=== PATIENT | male | born 1955 | race Caucasian/White ===

== ENCOUNTER 2018-02-17 18:13 | Inpatient (IN) | payer OTHER ==
[~2018-02-17] VITALS: Ht 177.8 cm; Wt 87.9 kg
[~2018-02-17 18:13] MED LIST: COU5T PO; COU7.5T PO; DILT180C66 PO; LOSA25TA96 PO; Lopressor PO; MAG400T PO; MULT-785 PO; NITR0.4T SL; OMEG1CAP PO; POTA10TA19 PO; PRED5TAB PO; brilinta PO
[2018-02-17] MEDS ORDERED: HYDROmorphone 1 mg/ml syringe IV ONE (18:30)
[2018-02-17] MEDS ORDERED: ondansetron/PF 4mg/2ml inj IV ONE (18:30)
[2018-02-17] MEDS ORDERED: HYDROmorphone inj. 0.5 MG/0.5 ML DISP.SYRIN IV ONE (18:30)
[2018-02-17] MEDS ORDERED: heparin 10,000 units/1 ML INJ IV ONE ×2 (18:35→18:45)
[2018-02-17 18:56] LABS: INR 1.1 INR; PARTIAL THROMBOPLASTIN TIME 25 SECONDS (22-32)
[2018-02-17 19:01] LABS: ALANINE AMINOTRANSFERASE 17 U/L (12-78); ALBUMIN 4.1 G/DL (3.4-5.0); ALBUMIN/GLOBULIN RATIO 1.3 (1.1-1.5); ALKALINE PHOSPHATASE 69 IU/L (46-116); ANION GAP 12 (8-16); ASPARTATE AMINO TRANSFERASE 16 U/L (10-37); BILIRUBIN,TOTAL 0.6 MG/DL (0.1-1.0); BLOOD UREA NITROGEN 17 MG/DL (7-18); CALCIUM 9.2 MG/DL (8.5-10.1); CHLORIDE 102 MMOL/L (99-107); GLUCOSE 119 MG/DL (70-104); POTASSIUM 3.6 MMOL/L (3.5-5.1); SODIUM 139 MMOL/L (135-145); TOTAL CARBON DIOXIDE 24.8 MMOL/L (24-32); TOTAL PROTEIN 7.3 G/DL (6.4-8.2); eGFR 76 ML/MIN
[2018-02-17 19:28] LABS: BASOPHILS % (AUTO) 0.7 % (0-1); EOSINOPHILS # (AUTO) 0.4 X10'3 (0-0.9); EOSINOPHILS % (AUTO) 6.9 % (0-6); HEMATOCRIT 43.5 % (42.0-52.0); HEMOGLOBIN 14.9 g/dl (14.0-17.9); LYMPHOCYTES # (AUTO) 1.5 X10'3 (1.1-4.8); LYMPHOCYTES % (AUTO) 25.2 % (21-51); MEAN CORPUSCULAR HEMOGLOBIN 32.1 PG (27.0-31.0); MEAN CORPUSCULAR HGB CONC 34.3 % (33.0-36.5); MEAN CORPUSCULAR VOLUME 93.5 FL (78-98); MEAN PLATELET VOLUME 9.1 FL (7.4-10.4); MONOCYTES # (AUTO) 0.5 X10'3 (0-0.9); MONOCYTES % (AUTO) 8.9 % (2-12); NEUTROPHILS # (AUTO) 3.5 X10'3 (1.8-7.7); NEUTROPHILS % (AUTO) 58.3 % (42-75); PLATELET COUNT 165 X10'3 (140-440); RED BLOOD COUNT 4.66 X10'6 (4.70-6.10); RED CELL DISTRIBUTION WIDTH 13.6 % (11.5-14.5); WHITE BLOOD COUNT 5.9 X10'3 (4.5-11.0)
[2018-02-17] MEDS: heparin 10,000 units/1 ML INJ IV PRN (19:33)
[2018-02-17] MEDS ORDERED: POTA10TA19 PO (19:52)
[2018-02-17] MEDS ORDERED: LOSA25TA96 PO (19:52)
[2018-02-17] MEDS ORDERED: CYAN-19 PO (19:52)
[2018-02-17] MEDS ORDERED: morphine 4 MG/ML inj SYRINge IV ONE (20:10)
[2018-02-17] MEDS ORDERED: labetalol 20mg/4ml (5mg/ml) syringe IV ONE (20:25)
[2018-02-17] MEDS ORDERED: LORazepam 2 mg/ml vial IV ONE (20:25)
[2018-02-17] MEDS ORDERED: magnesium hydroxide 30ml (MOM) UD suspension PO PRN (20:35)
[2018-02-17] MEDS ORDERED: acetaminophen 325mg tablet PO PRN (20:35)
[2018-02-17] MEDS ORDERED: morphine 4 MG/ML inj SYRINge IV PRN (20:35)
[2018-02-17] MEDS ORDERED: ondansetron/PF 4mg/2ml inj IV PRN (20:35)
[2018-02-17] MEDS ORDERED: mag hydrox/Alum hydrox/simeth 30ml oral suspension PO PRN (20:35)
[2018-02-17] MEDS ORDERED: LORazepam 2 mg/ml vial IV PRN (20:40)
[2018-02-17] MEDS ORDERED: thiamine 100mg tablet PO ONE (20:40)
[2018-02-17 21:40] VITALS: BP 179/94
[2018-02-17 22:00] VITALS: BP 160/98
[2018-02-17] MEDS: nitroGLYCERIN 0.4mg SUBLingual tab SL PRN ×3 (22:23→22:37)
[2018-02-17] MEDS ORDERED: metoprolol tartrate 1mg/ml inj IV ONE (22:50)
[2018-02-17] MEDS: morphine 2 MG/ML inj. syringe IV PRN (23:25)
[2018-02-18] VITALS (12 sets, daily range): BP systolic 132–171; BP diastolic 78–100
[2018-02-18 01:14] LABS: ALANINE AMINOTRANSFERASE 19 U/L (12-78); ALBUMIN/GLOBULIN RATIO 1.3 (1.1-1.5); ALKALINE PHOSPHATASE 66 IU/L (46-116); ANION GAP 7 (8-16); ASPARTATE AMINO TRANSFERASE 50 U/L (10-37); BILIRUBIN,TOTAL 1.1 MG/DL (0.1-1.0); BLOOD UREA NITROGEN 14 MG/DL (7-18); BUN/CREATININE RATIO 16.3 (5.4-32.0); CALCIUM 9.3 MG/DL (8.5-10.1); CHLORIDE 103 MMOL/L (99-107); CREATININE 0.86 MG/DL (0.60-1.10); GLUCOSE 143 MG/DL (70-104); POTASSIUM 4.1 MMOL/L (3.5-5.1); SODIUM 138 MMOL/L (135-145); TOTAL CARBON DIOXIDE 27.9 MMOL/L (24-32); eGFR 90 ML/MIN
[2018-02-18] MEDS: morphine 2 MG/ML inj. syringe IV PRN (01:16)
[2018-02-18 01:48] LABS: BASOPHILS % (AUTO) 0.1 % (0-1); EOSINOPHILS # (AUTO) 0.2 X10'3 (0-0.9); EOSINOPHILS % (AUTO) 2.6 % (0-6); HEMATOCRIT 43.8 % (42.0-52.0); HEMOGLOBIN 15.2 g/dl (14.0-17.9); LYMPHOCYTES # (AUTO) 0.8 X10'3 (1.1-4.8); LYMPHOCYTES % (AUTO) 9.1 % (21-51); MEAN CORPUSCULAR HEMOGLOBIN 32.6 PG (27.0-31.0); MEAN CORPUSCULAR HGB CONC 34.6 % (33.0-36.5); MEAN PLATELET VOLUME 9.6 FL (7.4-10.4); MONOCYTES # (AUTO) 0.6 X10'3 (0-0.9); MONOCYTES % (AUTO) 7.1 % (2-12); NEUTROPHILS # (AUTO) 7.4 X10'3 (1.8-7.7); NEUTROPHILS % (AUTO) 81.1 % (42-75); PLATELET COUNT 149 X10'3 (140-440); RED BLOOD COUNT 4.66 X10'6 (4.70-6.10); RED CELL DISTRIBUTION WIDTH 12.9 % (11.5-14.5); WHITE BLOOD COUNT 9.2 X10'3 (4.5-11.0)
[2018-02-18] MEDS: heparin 10,000 units/1 ML INJ IV PRN (04:30)
[2018-02-18] MEDS: metoprolol tartrate 25mg tablet PO SCH ×2 (07:28→20:27)
[2018-02-18] MEDS: losartan 25mg tablet PO SCH ×2 (07:28→20:27)
[2018-02-18 09:59] LABS: CHOL/HDL RATIO 2.4 (0.00-4.99); CHOLESTEROL 150 MG/DL (0-200); HDL CHOLESTEROL 62 MG/DL (35-60); LDL CHOLESTEROL 84 MG/DL (50-100); TRIGLYCERIDES 49 MG/DL (20-135)
[2018-02-18] MEDS ORDERED: predniSONE 20 mg tablet PO ONE (10:50)
[2018-02-18] MEDS: normal saline 1000ml 1,000 ML IV SCH (11:30)
[2018-02-18] MEDS ORDERED: hydrocortisone sod succ/PF 250mg/2ml inj. IV ONE (12:15)
[2018-02-18] MEDS ORDERED: diphenhydrAMINE 25mg capsule PO ONE (12:15)
[2018-02-18] MEDS ORDERED: hydrocortisone sod succ/PF 100mg/2ml inj. IV ONE (12:40)
[2018-02-18] MEDS ORDERED: iohexol 350MG/ML 100ml bottle IV ONE ×2 (16:10→17:02)
[2018-02-18] MEDS ORDERED: fentaNYL/PF 50MCG/1 ML 2ML syringe ONE (16:10)
[2018-02-18] MEDS ORDERED: iohexol 350 MG/ML 50ML vial IV ONE (16:10)
[2018-02-18] MEDS ORDERED: midazolam 2 mg/2 ml injection ONE (16:10)
[2018-02-18] MEDS ORDERED: LIDOcaine 1% 30ml preserv. free vial ONE (16:10)
[2018-02-18] MEDS ORDERED: tirofiban 5mg in NS 100mL 100 ML IV ONE (16:56)
[2018-02-18] MEDS ORDERED: clopidogrel 300mg tablet ONE (17:10)
[2018-02-18] MEDS ORDERED: aspirin 325mg tablet ONE (17:10)
[2018-02-18] MEDS ORDERED: metoprolol tartrate 1mg/ml inj IV ONE (17:16)
[2018-02-18] MEDS: nitroGLYCERIN-Tridil 50MG/D5W 250 ML IV SCH (18:10)
[2018-02-18] MEDS ORDERED: acetaminophen 325mg tablet PO PRN (18:10)
[2018-02-18] MEDS ORDERED: HYDROcodone/acetaminophen 10/325mg tab PO PRN (18:10)
[2018-02-18] MEDS ORDERED: proCHLORperazine 10 MG/2 ml inj IV PRN (18:10)
[2018-02-18] MEDS ORDERED: morphine 4 MG/ML inj SYRINge IV PRN (18:10)
[2018-02-18] MEDS: tirofiban 5mg in NS 100mL 100 ML IV SCH (18:33)
[2018-02-18] MEDS: docusate sod 100mg capsule PO SCH (20:27)
[2018-02-18] MEDS: OXAZEpam 15mg capsule PO PRN (20:27)
[2018-02-18] MEDS: cyclobenzaprine 10mg tablet PO PRN (20:28)
[2018-02-18 23:45] LABS: BASOPHILS % (AUTO) 0.1 % (0-1); EOSINOPHILS # (AUTO) 0.1 X10'3 (0-0.9); EOSINOPHILS % (AUTO) 0.6 % (0-6); HEMATOCRIT 45.3 % (42.0-52.0); HEMOGLOBIN 15.8 g/dl (14.0-17.9); LYMPHOCYTES # (AUTO) 0.4 X10'3 (1.1-4.8); MEAN CORPUSCULAR HEMOGLOBIN 32.4 PG (27.0-31.0); MEAN CORPUSCULAR HGB CONC 34.8 % (33.0-36.5); MEAN CORPUSCULAR VOLUME 93.1 FL (78-98); MEAN PLATELET VOLUME 9.1 FL (7.4-10.4); MONOCYTES # (AUTO) 0.5 X10'3 (0-0.9); MONOCYTES % (AUTO) 5.4 % (2-12); NEUTROPHILS # (AUTO) 8.2 X10'3 (1.8-7.7); NEUTROPHILS % (AUTO) 89.9 % (42-75); PLATELET COUNT 160 X10'3 (140-440); RED BLOOD COUNT 4.87 X10'6 (4.70-6.10); RED CELL DISTRIBUTION WIDTH 13.8 % (11.5-14.5); WHITE BLOOD COUNT 9.1 X10'3 (4.5-11.0)
[2018-02-19] VITALS (24 sets, daily range): BP systolic 108–162; BP diastolic 74–96
[2018-02-19] MEDS: normal saline 1000ml 1,000 ML IV SCH ×2 (00:10→09:22)
[2018-02-19] MEDS: tirofiban 5mg in NS 100mL 100 ML IV SCH ×5 (00:22→20:45)
[2018-02-19] MEDS: cyclobenzaprine 10mg tablet PO PRN (04:10)
[2018-02-19 04:14] LABS: BASOPHILS % (AUTO) 0.1 % (0-1); EOSINOPHILS # (AUTO) 0.1 X10'3 (0-0.9); EOSINOPHILS % (AUTO) 0.8 % (0-6); HEMATOCRIT 44.2 % (42.0-52.0); HEMOGLOBIN 15.4 g/dl (14.0-17.9); LYMPHOCYTES # (AUTO) 0.6 X10'3 (1.1-4.8); LYMPHOCYTES % (AUTO) 5.6 % (21-51); MEAN CORPUSCULAR HEMOGLOBIN 32.6 PG (27.0-31.0); MEAN CORPUSCULAR HGB CONC 34.8 % (33.0-36.5); MEAN CORPUSCULAR VOLUME 93.6 FL (78-98); MEAN PLATELET VOLUME 9.4 FL (7.4-10.4); MONOCYTES # (AUTO) 0.9 X10'3 (0-0.9); MONOCYTES % (AUTO) 7.6 % (2-12); NEUTROPHILS # (AUTO) 9.7 X10'3 (1.8-7.7); NEUTROPHILS % (AUTO) 85.9 % (42-75); PLATELET COUNT 161 X10'3 (140-440); RED BLOOD COUNT 4.72 X10'6 (4.70-6.10); RED CELL DISTRIBUTION WIDTH 13.3 % (11.5-14.5); WHITE BLOOD COUNT 11.3 X10'3 (4.5-11.0)
[2018-02-19 04:30] LABS: ALANINE AMINOTRANSFERASE 38 U/L (12-78); ALBUMIN 3.3 G/DL (3.4-5.0); ALBUMIN/GLOBULIN RATIO 1.1 (1.1-1.5); ALKALINE PHOSPHATASE 62 IU/L (46-116); ANION GAP 8 (8-16); ASPARTATE AMINO TRANSFERASE 120 U/L (10-37); BILIRUBIN,TOTAL 0.7 MG/DL (0.1-1.0); BLOOD UREA NITROGEN 13 MG/DL (7-18); BUN/CREATININE RATIO 16.7 (5.4-32.0); CALCIUM 8.5 MG/DL (8.5-10.1); CHLORIDE 106 MMOL/L (99-107); CHOL/HDL RATIO 2.3 (0.00-4.99); CHOLESTEROL 153 MG/DL (0-200); CREATININE 0.78 MG/DL (0.60-1.10); GLUCOSE 134 MG/DL (70-104); HDL CHOLESTEROL 66 MG/DL (35-60); LDL CHOLESTEROL 83 MG/DL (50-100); POTASSIUM 3.9 MMOL/L (3.5-5.1); SODIUM 139 MMOL/L (135-145); TOTAL CARBON DIOXIDE 24.7 MMOL/L (24-32); TOTAL PROTEIN 6.3 G/DL (6.4-8.2); TRIGLYCERIDES 61 MG/DL (20-135); eGFR > 90 ML/MIN
[2018-02-19] MEDS: losartan 25mg tablet PO SCH ×2 (08:13→19:36)
[2018-02-19] MEDS: aspirin 81mg tab.chew PO SCH (08:13)
[2018-02-19] MEDS: clopidogrel 75mg tablet PO SCH (08:13)
[2018-02-19] MEDS: metoprolol tartrate 25mg tablet PO SCH ×2 (08:13→19:35)
[2018-02-19] MEDS: docusate sod 100mg capsule PO SCH ×2 (08:13→19:36)
[2018-02-19] MEDS ORDERED: LIDOcaine 1% 30ml preserv. free vial ONE (09:20)
[2018-02-19] MEDS: HYDROcodone/acetaminophen 10/325mg tab PO PRN ×2 (09:20→19:36)
[2018-02-19] MEDS: nitroGLYCERIN-Tridil 50MG/D5W 250 ML IV SCH (18:10)
[2018-02-20] VITALS: BP 109/79
[2018-02-20 01:00] VITALS: BP 146/98
[2018-02-20] MEDS ORDERED: metoprolol tartrate 1mg/ml inj IV PRN (01:15)
[2018-02-20 02:00] VITALS: BP 131/98
[2018-02-20] MEDS ORDERED: amiodarone 150mg/dext, iso-os 100 ML IV ONE (02:10)
[2018-02-20] MEDS: OXAZEpam 15mg capsule PO PRN (02:48)
[2018-02-20] MEDS: normal saline 1000ml 1,000 ML IV SCH (02:50)
[2018-02-20 03:00] VITALS: BP 115/80
[2018-02-20 06:00] VITALS: BP 117/79
[2018-02-20 06:03] LABS: ALANINE AMINOTRANSFERASE 23 U/L (12-78); ALBUMIN 3.1 G/DL (3.4-5.0); ALKALINE PHOSPHATASE 56 IU/L (46-116); ANION GAP 6 (8-16); ASPARTATE AMINO TRANSFERASE 51 U/L (10-37); BILIRUBIN,TOTAL 0.9 MG/DL (0.1-1.0); BLOOD UREA NITROGEN 11 MG/DL (7-18); BUN/CREATININE RATIO 14.1 (5.4-32.0); CALCIUM 7.9 MG/DL (8.5-10.1); CHLORIDE 106 MMOL/L (99-107); CREATININE 0.78 MG/DL (0.60-1.10); GLUCOSE 121 MG/DL (70-104); POTASSIUM 3.7 MMOL/L (3.5-5.1); SODIUM 136 MMOL/L (135-145); TOTAL CARBON DIOXIDE 24.5 MMOL/L (24-32); TOTAL PROTEIN 6.1 G/DL (6.4-8.2); eGFR > 90 ML/MIN
[2018-02-20 06:08] LABS: BASOPHILS % (AUTO) 0.1 % (0-1); EOSINOPHILS # (AUTO) 0.2 X10'3 (0-0.9); HEMATOCRIT 42.3 % (42.0-52.0); HEMOGLOBIN 14.7 g/dl (14.0-17.9); LYMPHOCYTES # (AUTO) 0.9 X10'3 (1.1-4.8); LYMPHOCYTES % (AUTO) 9.1 % (21-51); MEAN CORPUSCULAR HEMOGLOBIN 32.6 PG (27.0-31.0); MEAN CORPUSCULAR HGB CONC 34.7 % (33.0-36.5); MEAN PLATELET VOLUME 9.7 FL (7.4-10.4); MONOCYTES # (AUTO) 0.9 X10'3 (0-0.9); MONOCYTES % (AUTO) 9.7 % (2-12); NEUTROPHILS # (AUTO) 7.5 X10'3 (1.8-7.7); NEUTROPHILS % (AUTO) 79.1 % (42-75); PLATELET COUNT 126 X10'3 (140-440); RED CELL DISTRIBUTION WIDTH 13.6 % (11.5-14.5); WHITE BLOOD COUNT 9.5 X10'3 (4.5-11.0)
[2018-02-20] MEDS: metoprolol tartrate 25mg tablet PO SCH (08:08)
[2018-02-20] MEDS: losartan 25mg tablet PO SCH (08:08)
[2018-02-20] MEDS: aspirin 81mg tab.chew PO SCH (08:09)
[2018-02-20] MEDS: docusate sod 100mg capsule PO SCH (08:09)
[2018-02-20] MEDS: clopidogrel 75mg tablet PO SCH (08:09)
[2018-02-20] MEDS ORDERED: CLOP75TA35 PO (09:55)
[2018-02-20] MEDS ORDERED: METO25TA6 PO (09:55)
[2018-02-20] MEDS ORDERED: ASPI-1265 PO (09:55)
== END 2018-02-20 11:20 | disposition home or self-care (01) | DRG 247 ==
LOC: ER 18:13 → ED HOLD 20:33 → PCU 3S 21:41 → CICU 2S 02-18 17:17 → PCU 3S 02-20 04:00
PROVIDERS: ADMIT Internal Medicine; ATTEND Internal Medicine Cardiovascular Disease
PROC: 027034Z Dilation of Coronary Artery, One Artery with Drug-eluting Intraluminal Device, Percutaneous Approach (ICD-10-PCS; principal; 2018-02-18)
PROC: B2111ZZ Fluoroscopy of Multiple Coronary Arteries using Low Osmolar Contrast (ICD-10-PCS; 2018-02-18)
PROC: B2181ZZ Fluoroscopy of Left Internal Mammary Bypass Graft using Low Osmolar Contrast (ICD-10-PCS; 2018-02-18)
PROC: B2151ZZ Fluoroscopy of Left Heart using Low Osmolar Contrast (ICD-10-PCS; 2018-02-18)
PROC: 4A023N7 Measurement of Cardiac Sampling and Pressure, Left Heart, Percutaneous Approach (ICD-10-PCS; 2018-02-18)
PROC: B2131ZZ Fluoroscopy of Multiple Coronary Artery Bypass Grafts using Low Osmolar Contrast (ICD-10-PCS; 2018-02-18)
PROC: 5A09357 Assistance with Respiratory Ventilation, Less than 24 Consecutive Hours, Continuous Positive Airway Pressure (ICD-10-PCS; 2018-02-18)
DX: I21.4 Non-ST elevation (NSTEMI) myocardial infarction (principal); E78.00 Pure hypercholesterolemia, unspecified; G47.30 Sleep apnea, unspecified; I10 Essential (primary) hypertension; I25.110 Atherosclerotic heart disease of native coronary artery with unstable angina pectoris; I48.91 Unspecified atrial fibrillation; J45.909 Unspecified asthma, uncomplicated; Z95.0 Presence of cardiac pacemaker; Z88.1 Allergy status to other antibiotic agents; Z88.8 Allergy status to other drugs, medicaments and biological substances; Z91.041 Radiographic dye allergy status; Z79.899 Other long term (current) drug therapy; Z79.82 Long term (current) use of aspirin; Z87.891 Personal history of nicotine dependence
CPT/HCPCS: 93306; 93459; 96374; 96375; 99285; C9600; 36415; 71045; 80053; 80061; 83735; 84484; 85025; 85610; 85730; 87070; 93005; 99152; 99153; A4620; A6213; A6257; A6258; A6449; C1725; C1760; C1769; C1874; J0282; J1170; J1644; J1720; J2060; J2250; J2270; J2405; J3010; J3246; J3490; J7030; J7512; Q0163; Q9967

== ENCOUNTER 2018-04-14 18:02 | Emergency (ER) | payer OTHER ==
[~2018-04-14] VITALS: Ht 177.8 cm; Wt 90.0 kg
[~2018-04-14 18:02] MED LIST changes: +ASPI-1265 PO; +CLOP75TA35 PO; -COU5T PO; -COU7.5T PO; +CYAN-19 PO; -DILT180C66 PO; -Lopressor PO; -MAG400T PO; +METO25TA6 PO; -MULT-785 PO; -OMEG1CAP PO; -PRED5TAB PO; -brilinta PO
[2018-04-14 18:28] LABS: BASOPHILS # (AUTO) 0.1 X10'3 (0-0.2); BASOPHILS % (AUTO) 0.9 % (0-1); EOSINOPHILS # (AUTO) 0.5 X10'3 (0-0.9); EOSINOPHILS % (AUTO) 7.6 % (0-6); HEMATOCRIT 43.5 % (42.0-52.0); HEMOGLOBIN 14.8 g/dl (14.0-17.9); LYMPHOCYTES # (AUTO) 1.5 X10'3 (1.1-4.8); LYMPHOCYTES % (AUTO) 23.4 % (21-51); MEAN CORPUSCULAR HGB CONC 34.1 % (33.0-36.5); MEAN CORPUSCULAR VOLUME 93.9 FL (78-98); MEAN PLATELET VOLUME 9.1 FL (7.4-10.4); MONOCYTES # (AUTO) 0.6 X10'3 (0-0.9); MONOCYTES % (AUTO) 9.3 % (2-12); NEUTROPHILS # (AUTO) 3.8 X10'3 (1.8-7.7); NEUTROPHILS % (AUTO) 58.8 % (42-75); PLATELET COUNT 190 X10'3 (140-440); RED BLOOD COUNT 4.63 X10'6 (4.70-6.10); RED CELL DISTRIBUTION WIDTH 13.4 % (11.5-14.5); WHITE BLOOD COUNT 6.4 X10'3 (4.5-11.0)
[2018-04-14 19:04] LABS: ALANINE AMINOTRANSFERASE 24 U/L (12-78); ALBUMIN 4.2 G/DL (3.4-5.0); ALBUMIN/GLOBULIN RATIO 1.4 (1.1-1.5); ALKALINE PHOSPHATASE 80 IU/L (46-116); ANION GAP 10 (8-16); ASPARTATE AMINO TRANSFERASE 17 U/L (10-37); BILIRUBIN,TOTAL 0.7 MG/DL (0.1-1.0); BLOOD UREA NITROGEN 9 MG/DL (7-18); BUN/CREATININE RATIO 10.5 (5.4-32.0); CALCIUM 8.8 MG/DL (8.5-10.1); CHLORIDE 103 MMOL/L (99-107); CREATININE 0.86 MG/DL (0.60-1.10); GLUCOSE 132 MG/DL (70-104); POTASSIUM 3.9 MMOL/L (3.5-5.1); SODIUM 141 MMOL/L (135-145); TOTAL CARBON DIOXIDE 27.7 MMOL/L (24-32); TOTAL PROTEIN 7.3 G/DL (6.4-8.2); eGFR 90 ML/MIN
[2018-04-14 19:05] LABS: INR 1.1 INR; PARTIAL THROMBOPLASTIN TIME 27 SECONDS (22-32); PROTHROMBIN TIME 10.7 SECONDS (9.0-12.0)
[2018-04-14 22:01] VITALS: BP 138/62
== END 2018-04-14 22:03 | disposition home or self-care (01) ==
LOC: ER 18:03
DX: R00.2 Palpitations (principal); I49.3 Ventricular premature depolarization; I48.91 Unspecified atrial fibrillation; I25.10 Atherosclerotic heart disease of native coronary artery without angina pectoris; E78.00 Pure hypercholesterolemia, unspecified; I10 Essential (primary) hypertension; J45.909 Unspecified asthma, uncomplicated; Z95.0 Presence of cardiac pacemaker; Z98.890 Other specified postprocedural states; Z88.8 Allergy status to other drugs, medicaments and biological substances; Z88.1 Allergy status to other antibiotic agents; Z91.048 Other nonmedicinal substance allergy status; Z79.82 Long term (current) use of aspirin; Z79.01 Long term (current) use of anticoagulants; Z79.899 Other long term (current) drug therapy
CPT/HCPCS: 36415; 71045; 80053; 84484; 85025; 85610; 85730; 93005; 99285

== ENCOUNTER 2018-04-20 08:00 | Outpatient (CLI) | payer OTHER | END 2018-04-20 23:59 | disposition home or self-care (01) | LOC: CARD DIAG 08:00 | PROVIDERS: ATTEND Internal Medicine Cardiovascular Disease | DX: I08.3 Combined rheumatic disorders of mitral, aortic and tricuspid valves (principal); I48.91 Unspecified atrial fibrillation; I25.2 Old myocardial infarction; I10 Essential (primary) hypertension; Z79.82 Long term (current) use of aspirin; Z79.899 Other long term (current) drug therapy; Z87.891 Personal history of nicotine dependence | CPT/HCPCS: 93306 ==

== ENCOUNTER 2018-07-25 20:53 | Inpatient (IN) | payer OTHER | END 2018-07-27 14:00 | disposition home or self-care (01) | LOC: ER 20:53 → ED HOLD 22:35 → PCU 3S 23:35 | DX: I48.91 Unspecified atrial fibrillation (principal); I21.A1 Myocardial infarction type 2; I73.9 Peripheral vascular disease, unspecified ==

== ENCOUNTER 2018-12-06 10:23 | Outpatient (CLI) | payer OTHER ==
[~2018-12-06] VITALS: Ht 177.8 cm; Wt 88.5 kg
[~2018-12-06 10:23] MED LIST changes: +APIX5TAB3 PO; +CARV-49 PO; -CLOP75TA35 PO; +DILT180C66 PO; -METO25TA6 PO; -POTA10TA19 PO; +TICA90TA2 PO
[2018-12-06 10:55] LABS: TOTAL HEMOGLOBIN 14.9 G/dl (14.0-18.0)
[2018-12-06] MEDS ORDERED: albuterol 2.5 MG/3 ML nebule NEB ONE (11:15)
== END 2018-12-06 23:59 | disposition home or self-care (01) ==
LOC: RT 10:23
PROVIDERS: ATTEND Internal Medicine Cardiovascular Disease
DX: R06.02 Shortness of breath (principal); I10 Essential (primary) hypertension; Z79.899 Other long term (current) drug therapy; Z87.891 Personal history of nicotine dependence
CPT/HCPCS: 85018; 94010; 94727; 94729

== ENCOUNTER 2020-12-31 07:27 | Outpatient (CLI) | payer OTHER ==
[~2020-12-31 07:27] MED LIST changes: -CYAN-19 PO; +CYAN-51 PO
== END 2020-12-31 23:59 | disposition home or self-care (01) ==
LOC: RT 07:27
PROVIDERS: ATTEND Internal Medicine Cardiovascular Disease
DX: I70.0 Atherosclerosis of aorta (principal); Z79.899 Other long term (current) drug therapy
CPT/HCPCS: 71046; 94010; 94727; 94729; 94760

== ENCOUNTER 2024-01-16 09:35 | Day surgery (SDC) | payer OTHER ==
[2024-01-16] VITALS (8 sets, daily range): BP systolic 102–135; BP diastolic 61–85; PULSE 55–62; RESP 14–23; TEMP 97.5; O2SAT 96–98
[~2024-01-16] VITALS: Ht 177.8 cm; Wt 92.8 kg
[~2024-01-16 09:35] MED LIST changes: +CYAN-104 PO; -CYAN-51 PO; +LOSA-415 PO; -LOSA25TA96 PO
[2024-01-16] MEDS ORDERED: ROSU5TAB43 PO (10:09)
[2024-01-16] MEDS ORDERED: SACU1TAB PO (10:09)
[2024-01-16] MEDS ORDERED: CARV25TA2 PO (10:09)
[2024-01-16] MEDS ORDERED: CLOP75TA34 PO (10:10)
[2024-01-16] MEDS ORDERED: ISOS30TA84 PO (10:10)
[2024-01-16] MEDS ORDERED: LEVO50CA4 PO (10:11)
[2024-01-16] MEDS ORDERED: ALIR75PE5 SQ (10:12)
[2024-01-16] MEDS ORDERED: APIX5TAB3 PO (10:12)
[2024-01-16 10:44] LABS: BASOPHILS % (AUTO) 0.8 % (0-1); EOSINOPHILS # (AUTO) 0.6 X10'3 (0-0.9); EOSINOPHILS % (AUTO) 9.6 % (0-6); HEMATOCRIT 36.2 % (42.0-52.0); HEMOGLOBIN 12.3 g/dl (14.0-17.9); LYMPHOCYTES # (AUTO) 0.7 X10'3 (1.1-4.8); LYMPHOCYTES % (AUTO) 11.6 % (21-51); MEAN CORPUSCULAR HEMOGLOBIN 32.2 PG (27.0-31.0); MEAN CORPUSCULAR HGB CONC 33.9 g/dL (33.0-36.5); MEAN CORPUSCULAR VOLUME 94.9 FL (78-98); MEAN PLATELET VOLUME 9.5 FL (7.4-10.4); MONOCYTES # (AUTO) 0.4 X10'3 (0-0.9); MONOCYTES % (AUTO) 7.1 % (2-12); NEUTROPHILS # (AUTO) 4.4 X10'3 (1.8-7.7); NEUTROPHILS % (AUTO) 70.9 % (42-75); PLATELET COUNT 106 X10'3 (140-440); RED BLOOD COUNT 3.82 X10'6 (4.70-6.10); RED CELL DISTRIBUTION WIDTH 13.5 % (11.5-14.5); WHITE BLOOD COUNT 6.1 X10'3 (4.5-11.0)
[2024-01-16] MEDS ORDERED: vancomycin 1,000mg inj ONE (10:46)
[2024-01-16] MEDS ORDERED: LIDOcaine 1% w/EPI 1:100,000 inj. MDV 50 ML VIAL ONE (10:46)
[2024-01-16] MEDS ORDERED: midazolam 1 mg/ML 2ml injection ONE ×2 (10:46→11:28)
[2024-01-16] MEDS ORDERED: fentaNYL/PF 50MCG/1 ML 2ML syringe ONE (10:46)
[2024-01-16 10:55] LABS: INR 1.1 INR; PROTHROMBIN TIME 11.4 SECONDS (9.0-12.0)
[2024-01-16 10:58] LABS: ALBUMIN 3.9 G/DL (3.4-5.0); ANION GAP 6 (8-16); BLOOD UREA NITROGEN 10 MG/DL (7-18); BUN/CREATININE RATIO 11.5 (10.0-20.0); CALCIUM 8.8 MG/DL (8.5-10.1); CHLORIDE 105 MMOL/L (99-107); CREATININE 0.87 MG/DL (0.60-1.10); GLUCOSE 113 MG/DL (70-104); MAGNESIUM 2.1 MG/DL (1.5-2.4); POTASSIUM 4.1 MMOL/L (3.5-5.1); SODIUM 139 MMOL/L (135-145); TOTAL CARBON DIOXIDE 27.8 MMOL/L (24-32); eCRCL 85 ML/MIN; eGFR 88 ML/MIN
[2024-01-16] MEDS: vancomycin/NS 1 GM ADD-VANTAGE 250 ML IV STA (11:06)
[2024-01-16] MEDS ORDERED: ceFAZolin 1000mg inj ONE (11:21)
[2024-01-16] MEDS ORDERED: HYDROcodone/acetaminophen 10/325mg tab PO PRN (12:50)
[2024-01-16] MEDS ORDERED: normal saline 1000ml 1,000 ML IV SCH (12:50)
[2024-01-16] MEDS ORDERED: HYDROcodone/acetaminophen 5mg/325mg tablet PO PRN (12:50)
== END 2024-01-16 14:37 | disposition home or self-care (01) ==
LOC: SSTAY O 09:35
PROVIDERS: ATTEND Internal Medicine Cardiovascular Disease
DX: T82.111A Breakdown (mechanical) of cardiac pulse generator (battery), initial encounter (principal); I45.10 Unspecified right bundle-branch block; I25.10 Atherosclerotic heart disease of native coronary artery without angina pectoris; E03.9 Hypothyroidism, unspecified; I48.0 Paroxysmal atrial fibrillation; E78.01 Familial hypercholesterolemia; I73.9 Peripheral vascular disease, unspecified; G47.33 Obstructive sleep apnea (adult) (pediatric); F43.10 Post-traumatic stress disorder, unspecified; Z79.890 Hormone replacement therapy; Z79.899 Other long term (current) drug therapy; Z95.1 Presence of aortocoronary bypass graft; Z98.890 Other specified postprocedural states; Y71.2 Prosthetic and other implants, materials and accessory cardiovascular devices associated with adverse incidents; Y92.89 Other specified places as the place of occurrence of the external cause
CPT/HCPCS: 33264; 36415; 80048; 83735; 85025; 85610; 93005; 99152; 99153; C1882; C1883; J0690; J2250; J3010; J3370; J3490; J7030; 33229; A6258; C2621